=== PATIENT | female | born 1970 | race Caucasian/White ===

== ENCOUNTER 2018-07-27 19:59 | Emergency (ER) | payer MEDICAID ==
[2018-07-27] MEDS ORDERED: ONDANSETRON 4 MG/2 ML VIAL IVP ONE (20:12)
[2018-07-27] MEDS ORDERED: NS 1,000 ML IV ONE (20:12)
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
--- NOTE | 2018-07-27 20:25 | CPEKG ---
Test Reason : OPEN Blood Pressure : / mmHG Vent. Rate : 086 BPM Atrial Rate : 087 BPM P-R Int : 169 ms QRS Dur : 092 ms QT Int : 382 ms P-R-T Axes : 072 055 069 degrees QTc Int : 457 ms Sinus rhythm Biatrial enlargement Confirmed by David Drew ([id number]) on 07/27/2018 8:25:33 PM Referred By: Confirmed By:David Drew
[2018-07-27 20:33] LABS: PLATELET COUNT 339 10^3/uL (150-400)
[2018-07-27 20:42] LABS: INR 0.92 (0.83-1.16); PROTIME(PATIENT) 12.6 SEC (12.0-15.0)
[2018-07-27] MEDS ORDERED: ONDANSETRON 4 MG/2 ML VIAL ONE (21:14)
[2018-07-27 21:52] VITALS: BP 144/90
== END 2018-07-27 21:53 | disposition home or self-care (01) ==
DX: F15.10 Other stimulant abuse, uncomplicated (principal); G47.33 Obstructive sleep apnea (adult) (pediatric); E86.9 Volume depletion, unspecified; J45.909 Unspecified asthma, uncomplicated; F43.10 Post-traumatic stress disorder, unspecified; H91.90 Unspecified hearing loss, unspecified ear; Z87.891 Personal history of nicotine dependence
CPT/HCPCS: 80307; 84484-PO; 96374; G0480; J2405